=== PATIENT | male | born 1950 | race Caucasian/White ===

== ENCOUNTER 2019-07-04 09:07 | Outpatient (CLI) | payer BC ==
--- NOTE | 2019-07-04 11:17 | CT ---
CT ABDOMEN AND PELVIS WITH AND WITHOUT IV CONTRAST 07/04/2019 CLINICAL INFORMATION: Recent diagnosis of prostate cancer. Elevated PSA levels. COMPARISON: None. Technique: Multiple contiguous axial CT images are obtained through the abdomen and pelvis with IV contrast. Cor onal reformatted images are provided. FINDINGS: Lower Chest: Minimal atelectasis is present at each lung base. No pulmonary nodule or pleural effusio n is seen. Vessels: Vascular calcifications are seen in the abdominal aorta and involving the iliac arteries. Th e abdominal aorta is normal in caliber without evidence of an aortic dissection. Abdomen: Portal vein:Patent Gallbladder: Within normal limits for CT imaging. Liver: A subcentimeter too small to characterize hypodense lesion is seen in the anterior aspect late ral segment left hepatic lobe. Liver otherwise has a normal CT appearance. Spleen: within normal limits. Pancreas: within normal limits. Adrenals: within normal limits. Kidneys: within normal limits. No renal calculi or enhancing renal mass is seen. No filling defects a re seen within the renal collecting systems or segmentally visualized bilateral ureters. Bowel: Normal caliber. Appendix: The appendix is visualized and normal in caliber. Peritoneum: No ascites or free air; no fluid collection. Mesentery and Retroperitoneum: No enlarged mesenteric or retroperitoneal lymph nodes. Abdominal Wall: within normal limits. Pelvis: Reproductive Organs: Prostate calcification are seen. The prostate gland is not in enlarged. Pelvis within normal limits. Bladder: within normal limits. Bones: No suspicious lytic or sclerotic osseous lesions are seen. IMPRESSION: 1. No acute findings are seen in the abdomen or pelvis. 2. No osseous metastatic lesions are appreciated. 3. Subcentimeter too small to characterize hypodense lesion left hepatic lobe.
== END 2019-07-04 09:08 | disposition home or self-care (01) ==
LOC: TBSIIMAG 09:07
PROVIDERS: ATTEND Urology
DX: C61 Malignant neoplasm of prostate (principal); K76.9 Liver disease, unspecified; Z87.442 Personal history of urinary calculi
CPT/HCPCS: 74178; 82565

== ENCOUNTER 2019-07-25 08:22 | Outpatient (CLI) | payer BC ==
--- NOTE | 2019-07-25 10:17 | MRI ---
EXAM: MRI of the pelvis/prostate without and with contrast HISTORY: Prostate cancer COMPARISON: None TECHNIQUE: Multiplanar multisequence MR images were obtained of the pelvis without and with IV contra st. Evaluation of this exam was performed with a [employer] workstation. FINDINGS: Central gland: Moderate hypertrophy of the central gland consistent with BPH. No suspicious low T2 si gnal lesion is seen. Peripheral zone: No restricted diffusion is seen. No low signal on ADC map. Seminal vesicles: Intact without abnormality Neurovascular bundles: Intact Pelvic lymph nodes: No pelvic adenopathy Other visualized intrapelvic structures: Mild prominence of both ureters is seen without obvious fill ing defect in the distal ureters. 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 Osseous structures: No marrow signal abnormality IMPRESSION: PI-RADS Category 2-low likelihood that a clinically significant cancer is present.
[2019-07-25] MEDS ORDERED: Gadobenate Dimeglumine 529 MG/1 ML (20ML VIAL) ONE (16:49)
== END 2019-07-25 08:23 | disposition home or self-care (01) ==
LOC: TBSIIMAG 08:22
PROVIDERS: ATTEND Urology
DX: C61 Malignant neoplasm of prostate (principal); Z87.442 Personal history of urinary calculi
CPT/HCPCS: 72197; A9577